=== PATIENT | female | born 1965 | race Caucasian/White ===

== ENCOUNTER → 2021-03-24 17:20 | Outpatient (CLI) | payer BC, SELFPAY ==
--- NOTE | ~2021-03-24 | XR_ITS ---
EXAMINATION: XR chest 2V 03/24/2021 18:02 INDICATION: Chronic cough PROCEDURE: 2 view chest COMPARISON: 06/01/2008 FINDINGS: There are small nodular densities in the left lower lung zone and right suprahilar region. No focal pneumonia, edema or pneumothorax. The cardiomediastinal silhouette is within normal limits. There are no pleural effusions. There is no pneumothorax suspected. IMPRESSION: 1: Small subcentimeter nodular densities both lungs. Follow-up CT chest with contrast recommended. Reviewed, dictated and finalized at location A. IMPRESSION: 1: Small subcentimeter nodular densities both lungs. Follow-up CT chest with c ontrast recommended.
--- NOTE | ~2021-03-24 | XR_ITS ---
XR knee LT min 4V 03/24/2021 18:03 INDICATION: Left knee pain PROCEDURE: 4 views left knee COMPARISON: No prior studies for comparison. FINDINGS: Fracture, dislocation or subluxation is not identified. The soft tissues appear within norm al limits. No foreign bodies are identified. IMPRESSION: 1: NO ACUTE BONE OR JOINT ABNORMALITY IDENTIFIED. Reviewed, dictated and finalized at location A.
== END ==
PROVIDERS: PCP Internal Medicine; Visit Provider Internal Medicine
DX: R05 Cough (principal); M25.562 Pain in left knee; R91.8 Other nonspecific abnormal finding of lung field
CPT/HCPCS: 71046; 73564

== ENCOUNTER 2021-03-30 08:03 | Outpatient (CLI) | payer BC, SELFPAY ==
--- NOTE | ~2021-03-30 | CT_ITS ---
EXAMINATION:CT diagnostic chest w con DATE: 03/30/2021 08:34 INDICATION: Chronic cough. Abnormal chest radiograph. TECHNIQUE: Computed tomography (CT) of the chest was performed with 75 mL Omnipaque 350 intravenous c ontrast. Automated exposure control and iterative reconstruction technique were employed. The dose-le ngth product (DLP) was 203.63 mGy-cm. COMPARISON: Chest 2 views 03/24/2021 FINDINGS: There is mild scarring at the lung apices. Calcified right lung nodules consistent with old granulomatous disease correlate with the chest radiograph abnormality. There is mild atelectasis in lingula. No pleural effusion. Calcified right hilar and mediastinal lymph nodes are consistent with o ld granulomatous disease. The heart size is normal. No pericardial effusion. There is mild thoracic s pondylosis. IMPRESSION: 1. Mild scarring at the lung apices. Reviewed, dictated and finalized at location A.
== END 2021-03-30 08:04 | disposition home or self-care (01) ==
LOC: CHSIMG 08:04
PROVIDERS: PCP Internal Medicine; Visit Provider Internal Medicine
DX: J98.4 Other disorders of lung (principal)
CPT/HCPCS: 71260; Q9967

== ENCOUNTER 2023-03-05 19:15 | Emergency (ER) | payer BC, SELFPAY ==
--- NOTE | ~2023-03-05 | CT_ITS ---
EXAMINATION: CT abdomen pelvis w con DATE: 03/05/2023 20:12 INDICATION: LLQ PAIN TECHNIQUE: Computed tomography (CT) of the abdomen and pelvis was performed with 100 mL Omnipaque-350 intravenous contrast. Automated exposure control and iterative reconstruction technique were employe d. The dose-length product was 638.77 mGy-cm. COMPARISON: None. FINDINGS: Lower thorax: Unremarkable Liver: Normal. Biliary/Gallbladder: Gallbladder is normal. No bile duct dilation. Pancreas: No mass or duct dilation. Spleen: Granulomas calcifications. Adrenals:No mass. Kidneys: Mild left pelviectasis and ureterectasis with inflammatory stranding. No suspicious mass or obstructing stone. GI tract: No small or large bowel dilation. Mild appendix dilation, without inflammatory change, like ly a chronic finding in the absence of right lower quadrant pain. Mesentery/Peritoneum: No ascites, mass, or free air. Central mesenteric edema with enlarged mesenteri c lymph nodes with fat halos. Retroperitoneum: No mass. Prominent periaortic lymph nodes. Pelvis: Mild bladder wall thickening in a partially distended urinary bladder, the remaining pelvic o rgans are within normal limits. Soft Tissues: Soft tissues and body wall unremarkable. Bones: No acute osseous finding. IMPRESSION: Sclerosing mesenteritis. Minimal hydronephrosis and mild inflammatory change involving the left colle cting system, without obstructing stone, may represent ascending infection in the appropriate clinica l context. Mild bladder wall thickening may be secondary to inadequate distention or cystitis. Reviewed, dictated and finalized at location K. IMPRESSION: Sclerosing mesenteritis. Minimal hydronephrosis and mild inflammatory change in volving the left collecting system, without obstructing stone, may represent as cending infection in the appropriate clinical context. Mild bladder wall thicke mike may be secondary to inadequate distention or cystitis.
--- NOTE | 2023-03-05 19:16 | ED.GENADULT ---
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 ASSOCIATED WITH URINARY FREQUENCY AND DYSURIA AT THE END OF VOIDING. NO HEMATURIA NO CHANGE IN HER BOWEL HABITS DENIES ANY DIARRHEA OR CONSTIPATION OR BLOOD IN HER STOOL OR FEVER HISTORY OF DIVERTICULOSIS KIDNEY STONES. SHE THINKS IT FEELS LIKE URINARY TRACT INFECTION SHE HAD IN THE PAST BUT THIS TIME SHE HAS LEFT LOWER QUADRANT PAIN WELL. DENIES ANY COUGH SORE THROAT RUNNY NOSE FEVER PAIN ELSEWHERE PROBLEMS WALKING TALKING SEEING OR HEARING RASH OR ITCHING LUMPS OR BUMPS BLEEDING OR BRUISING. HER LAST PERIOD WAS WHEN SHE WAS 42 SHE HAS TAKEN SOME TYLENOL WHICH SEEMS TO HELP HAD BENADRYL IN IT SO SHE HAS BEEN SLEEPING OKAY. PAST MEDICAL HISTORY: NO HISTORY OF DIABETES HYPERTENSION HEART DISEASE LUNG DISEASE KIDNEY STONES DIVERTICULOSIS DIVERTICULITIS THYROID DISEASE ALLERGIES NO KNOWN DRUG ALLERGIES Related Data Allergies Allergy/AdvReac Type Severity Reaction Status Date / Time No Known Allergies Allergy Verified 03/05/23 19:23 Exam Narrative: White female no apparent distress. ?Head:? Normocephalic atraumatic.? Eyes conjunctiva pink sclera nonicteric.? Ears normal.? Oropharynx is clear with moist mucous membranes no exudates.? Neck is supple no lymphadenopathy nontender full range of motion.? Back is nontender. Chest nontender.? Lungs are clear without wheezes rales or rhonchi.? Heart is regular rate rhythm without murmurs gallops or rubs.? Abdomen soft and with left lower quadrant tenderness and rebound in this location. No hepatosplenomegaly or masses, no CVA tenderness, no abdominal bruits. No guarding.? Extremities no cyanosis clubbing or edema.? Neurological she is alert and oriented x4 motor and sensory grossly intact.? Skin is warm and dry without lesions. Course Vital Signs Vital signs: Vital Signs Temperature 36.6 C 03/05/23 19:17 Pulse Rate 100 03/05/23 19:17 Respiratory Rate 20 03/05/23 19:17 Blood Pressure 190/108 H 03/05/23 19:17 Pulse Oximetry 98 03/05/23 19:17 Oxygen Delivery Room Air 03/05/23 19:17 Temperature 36.6 C 03/05/23 19:17 Pulse Rate 92 03/05/23 20:29 Respiratory Rate 18 03/05/23 20:29 Blood Pressure 142/90 H 03/05/23 20:29 Pulse Oximetry 99 03/05/23 20:29 Oxygen Delivery Room Air 03/05/23 20:29 Medical Decision Making MDM Narrative Medical decision making narrative: patient was placed in room 4 And a history and physical were performed. IV was started she is given a L of normal saline CT with IV contrast was done after labs are back which included CBC CMP lipase. Is given Toradol 30 mg IV and Zofran 4 mg IV. CBC CMP and lipase were normal urinalysis showed rbc's 11-200 with 16-20 wbc's +3 blood +1 bacteria +[address] with IV contrast showed sclerosing mesenteritis. Full hydronephrosis and mild inflammatory change involving the left collecting system without obstructing stone, may represent ascending infection the appropriate clinical context. Mild bladder wall thickening may be secondary to inadequate distention or cystitis. Patient given Cipro 250 mg for possible cystitis and prednisone 40 mg p.o. Patient states he feels better sharp pains down to 2. 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 Radiologist report was removed reviewed as above. External Source Review: Shared decision Making: evaluation discussed with patient and her son. All questions were asked
[2023-03-05 19:17] VITALS: BP 190/108; PULSE 100; RESP 20; TEMP 36.6; O2SAT 98
[2023-03-05 19:42] LABS: Hematocrit 40.9 % (35.0-49.0); Hemoglobin 13.6 g/dL (12.0-15.0); Mean Corpuscular HGB Conc 33.3 g/dL (32.0-36.0); Mean Corpuscular Hemoglobin 31.3 pg (27.0-31.0); Mean Platelet Volume 10.1 fl (9.2-11.8); Platelet Count Result 196 K/mm3 (150-420); Red Blood Count 4.35 M/mm3 (4.20-5.40); Red Cell Distribution Width 12.1 % (11.6-14.4); White Blood Count 8.4 K/mm3 (4.8-10.8)
[2023-03-05 19:43] LABS: Appearance Urine Clear (Clear); Bilirubin Urine Negative (Negative); Blood Urine 3+ (Negative); Color Urine Light Yellow (Yellow); Glucose Urine UA Negative (Negative); Ketones Urine Negative (Negative); Leukocyte Esterase Ur 1+ LEU/UL (Negative); Nitrate Urine Negative (Negative); Protein Urine 1+ (Negative); Specific Grav Ur 1.015 (1.010-1.020)
[2023-03-05] MEDS: KETOROLAC 30 MG/ML VIAL (*BKC) IV PUSH (19:44)
[2023-03-05 19:45] LABS: Add Urine Microscopic? YES; Bacteria Urine 1+ /hpf; Squamous Epithelial Cell Urine Rare /hpf (Few); WBC Urine 16-20 /hpf (0-3)
[2023-03-05] MEDS: SODIUM CHLORIDE 0.9% IV 1,000 ML 999 ML IV CONT (19:45)
[2023-03-05] MEDS: ONDANSETRON INJ 4 MG/2 ML VIAL IV PUSH (19:45)
[2023-03-05 19:57] LABS: Alanine Aminotransferase 30 U/L (14-59); Albumin Level 3.7 g/dL (3.4-5.0); Alkaline Phosphatase 69 U/L (46-116); Anion Gap 10 mmol/L (8-16); Aspartate Amino Transferase 16 U/L (15-37); Bilirubin,Total 0.3 mg/dL (0.00-1.00); Blood Urea Nitrogen 15 mg/dL (7-18); Calcium 8.9 mg/dL (8.5-10.1); Carbon Dioxide 29 mmol/L (21-32); Chloride 104 mmol/L (98-108); Estimated CRCL calculation 61 ml/min; Estimated Glomerular Filt Rate > 60; Glucose 136 mg/dL (70-99); Lipase 21 U/L (16-77); Osmolality Calculated 298 mOsm/kg (285-295); Potassium 4.1 mmol/L (3.5-5.1); Sodium 143 mmol/L (136-145); Total Protein 7.6 g/dL (6.4-8.2)
[2023-03-05 20:29] VITALS: BP 142/90; PULSE 92; RESP 18; O2SAT 99
[2023-03-05] MEDS: predniSONE 20 MG TABLET 40 MG PO (20:48)
[2023-03-05] MEDS: CIPROFLOXACIN 250 MG TABLET PO (20:48)
[2023-03-05 21:09] VITALS: BP 140/88; PULSE 90; RESP 20; TEMP 37.2; O2SAT 100
--- NOTE | 2023-04-11 11:37 | PC.NURSE ---
FINAL URINE CULTURE RESULT: 10,000-49,000 CFU/ML OF E COLI. PER DR SANTANA, NO CHANGE IN TX NEEDED.
== END 2023-03-05 21:17 | disposition home or self-care (01) ==
PROVIDERS: Emergency Provider Emergency Medicine; PCP Internal Medicine
DX: K65.4 Sclerosing mesenteritis (principal); N30.01 Acute cystitis with hematuria
CPT/HCPCS: 36415; 74177; 80053; 81001; 83690; 85027; 87077; 87086; 87088; 87186; 96361; 96374; 96375; 99284; A9270; J1885; J2405; J7030; J7512; Q9967

== ENCOUNTER 2023-10-08 11:29 | Outpatient (CLI) | payer BC, SELFPAY ==
--- NOTE | 2023-10-08 11:36 | ECG_ITS ---
Measurements Intervals [place] Rate: 66 P: 85 OR: 151 QRS: -17 QRSD: 88 T: -6 QT: 396 QTc: 415 Interpretive Statements SINUS RHYTHM NONSPECIFIC T-WAVE ABNORMALITY ABNORMAL ECG NO PREVIOUS ECG AVAILABLE FOR COMPARISON Electronically Signed On 10-09-2023 10:44:29 AGRICULTURAL EXTENSION OFFICER by Alok Yi M.D.
== END 2023-10-08 11:30 | disposition home or self-care (01) ==
LOC: CHSCARD 11:31
PROVIDERS: PCP Internal Medicine; Visit Provider Internal Medicine
DX: I10 Essential (primary) hypertension (principal); R94.31 Abnormal electrocardiogram [ECG] [EKG]
CPT/HCPCS: 93005

== ENCOUNTER → 2023-10-22 10:45 | Outpatient (CLI) | payer BC, SELFPAY ==
--- NOTE | ~2023-10-22 | US_ITS ---
EXAMINATION: US soft tissue UE LT DATE: 10/22/2023 11:04 INDICATION: Localized swelling, mass and lump, left upper extremity. TECHNIQUE: Multiple grayscale and Doppler ultrasound images of the left upper limb were obtained. COMPARISON: None FINDINGS: There is no abnormal mass in the patient's area of concern in left upper arm. IMPRESSION: 1. No abnormal mass in the patient's area of concern in left upper arm. Reviewed, dictated and finalized at location E. L FLOOR PAN PLACING SUPERVISOR
== END ==
PROVIDERS: PCP Surgery; Visit Provider Surgery
DX: R22.32 Localized swelling, mass and lump, left upper limb (principal)
CPT/HCPCS: 76882

== ENCOUNTER 2023-11-12 07:50 | Outpatient (CLI) | payer BC, SELFPAY ==
--- NOTE | ~2023-11-12 | MM_ITS ---
EXAMINATION: MM screening hernan BI w vonda HISTORY: Screening TECHNIQUE: Craniocaudal and mediolateral oblique 3-D tomosynthesis images were obtained and synthetic 2-D images were generated. CAD analysis was submitted and interpreted. COMPARISON: No prior mammogram is available for comparison at this institution. BREAST PARENCHYMAL COMPOSITION: The breasts are heterogeneously dense, which may obscure small masses FINDINGS: There are multiple nodular asymmetries in both breasts. There is a cluster of calcification s in the upper outer quadrant of the left breast posteriorly. IMPRESSION: 1. Bilateral nodular asymmetries and clustered left breast calcifications. 2. Additional spot compression and mediolateral views with possible follow-up breast ultrasound recom mended. BI-RADS Category 0: Incomplete: Needs additional imaging evaluation. Reviewed, dictated and finalized at location A. MIXING OPERATOR IMPRESSION: 1. Bilateral nodular asymmetries and clustered left breast calcifications. 2. Additional spot compression and mediolateral views with possible follow-up b reast ultrasound recommended. BI-RADS Category 0: Incomplete: Needs additional imaging evaluation.
== END 2023-11-12 07:51 | disposition home or self-care (01) ==
LOC: CHSIMG 07:52
PROVIDERS: PCP Internal Medicine; Visit Provider Internal Medicine
DX: Z12.31 Encounter for screening mammogram for malignant neoplasm of breast (principal); R92.8 Other abnormal and inconclusive findings on diagnostic imaging of breast
CPT/HCPCS: 77063; 77067

== ENCOUNTER 2023-11-19 09:19 | Outpatient (CLI) | payer BC, SELFPAY ==
--- NOTE | ~2023-11-19 | MMUS_ITS ---
EXAMINATION: MM diagnostic hernan BI w vonda, US breast BI limited HISTORY: Right breast mass and left breast calcifications on screening mammogram TECHNIQUE: Additional 3-D tomosynthesis images of the breasts were performed and synthetic 2-D images were generated. CAD analysis was submitted and interpreted. High resolution limited bilateral breast ultrasound was performed. COMPARISON: 11/12/2023, 01/30/2021, 04/06/2019 FINDINGS: MAMMOGRAPHIC FINDINGS: Left breast: There are grouped coarse heterogeneous calcifications in the posterior third of the uppe r outer quadrant of the breast at the 1:00 location, 7 cm from the nipple. No definite associated mas s or architectural distortion are identified. Right breast: There is a 1.8 x 1.0 cm oval, obscured, equal density mass in the middle/posterior thir d of the breast at the 12:00 location, 5 cm from the nipple. ULTRASOUND: Left breast: No cystic or solid mass is identified in the area of the calcifications identified on th e mammogram. Right breast: There are adjacent cysts measuring 7 mm and 12 mm at the 11:00 location, 5 cm from the nipple in the right breast corresponding to the mammographic finding in question. IMPRESSION: 1. Indeterminate left breast calcifications. Stereotactic left breast biopsy is recommended. 2. Simple cysts of the right breast corresponding to the mammographic finding. BI-RADS category 4, suspicious findings. Reviewed, dictated and finalized at location A. AIR DIRECTOR IMPRESSION: 1. Indeterminate left breast calcifications. Stereotactic left breast biopsy is recommended. 2. Simple cysts of the right breast corresponding to the mammographic finding. BI-RADS category 4, suspicious findings.
== END 2023-11-19 09:20 | disposition home or self-care (01) ==
LOC: CHSIMG 09:20
PROVIDERS: PCP Internal Medicine; Visit Provider Internal Medicine
DX: R92.8 Other abnormal and inconclusive findings on diagnostic imaging of breast (principal)
CPT/HCPCS: 76642; 77062; 77066; G0279

== ENCOUNTER 2023-11-25 09:17 | Outpatient (CLI) | payer BC, SELFPAY ==
--- NOTE | 2023-11-25 09:26 | ECHO_ITS ---
Patient Info Name: Lu Wilson Age: 58 years : 1965 Gender: Female Ht: 65 in Wt: 189 lbs BSA: 2.01 m2 HR: 65 bpm BP: 136 / 87 mmHg Heart Rhythm: Sinus Rhythm Technical Quality: Good Exam Date: 11/25/2023 10:22 AM Exam Location: Echo Lab Patient Status: Outpatient Admit Date: 11/25/2023 Staff Ordering Physician: Nahun Copeland MD Informatics Analyst: Humza Arias RDCS Attending Provider: Nahun Copeland MD Exam Type: CA echo doppler color flow Study Info Indications - ABN EKG Complete two-dimensional, color flow and Doppler transthoracic echocardiogram is performed. Summary 1. Complete two-dimensional, color flow and Doppler transthoracic echocardiogram is performed. 2. Left ventricular chamber dimension is mildly enlarged. 3. Left ventricular systolic function is normal, estimated at 55-60%. 4. The left ventricular diastolic function is normal. 5. There is trace mitral valve regurgitation. 6. There is mild tricuspid valve regurgitation. 7. No pulmonary hypertension, estimated pulmonary arterial systolic pressure is 32 mmHg. Left Ventricle Tissue doppler E/e' is not performed. Left ventricular chamber dimension is mildly enlarged. Left ventricular systolic function is normal, estimated at 55-60%. The left ventricular diastolic function is normal. Right Ventricle Right ventricular systolic function is normal and with normal TAPSE 2.2 cm. Right ventricular chamber dimension is normal. Left Atria Left atrial chamber dimension is normal. Right Atria Right atrial chamber dimension is normal. Aortic Valve The aortic valve is trileaflet. There is no aortic valve stenosis. There is no aortic valve regurgitation. Pulmonic Valve There is no pulmonic regurgitation. Mitral Valve There is no mitral valve stenosis. There is trace mitral valve regurgitation. Tricuspid Valve There is mild tricuspid valve regurgitation. No pulmonary hypertension, estimated pulmonary arterial systolic pressure is 32 mmHg. Pericardium/Pleural There is no pericardial effusion. Inferior Vena Cava Normal inferior vena cava with >50% collapse upon inspiration consistent with normal right atrial pressure, 5 mmHg. Aorta The aortic root size at the sinus of Valsalva is normal. Left Ventricular Outflow Tract Name Value Normal LVOT 2D LVOT Diameter 1.8 cm LVOT Doppler LVOT Peak Velocity 100 cm/s LVOT Peak Gradient 3 mmHg LVOT Mean Gradient 2 mmHg LVOT VTI 27 cm LVOT VTI/AV VTI Ratio 0.9 LVOT Stroke Volume 68 ml Pulmonic Valve Name Value Normal RVOT Doppler RVOT Peak Gradient 1 mmHg PV Doppler PV Peak Velocity 89 cm/s PV Peak Gradient 3 mmHg
== END 2023-11-25 09:18 | disposition home or self-care (01) ==
LOC: CHSIMG 09:19
PROVIDERS: PCP Internal Medicine; Visit Provider Internal Medicine
DX: R94.31 Abnormal electrocardiogram [ECG] [EKG] (principal); I07.1 Rheumatic tricuspid insufficiency
CPT/HCPCS: 93306

== ENCOUNTER 2024-09-05 10:54 | Emergency (ER) | payer BC, SELFPAY ==
[2024-09-05 11:00] VITALS: BP 178/95; PULSE 78; RESP 18; TEMP 36.8; O2SAT 99
--- NOTE | 2024-09-05 11:12 | ED_ITS ---
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 No fever chills no chest pain or shortness of breath. There is no dysuria. MD Complaint: extremity pain Onset (ago): day(s) Pain Consistency: constant Location: right Severity scale (1-10): 6 Related Data Home Medications Medication Instructions Recorded Confirmed loratadine 10 mg tablet (Allergy 10 mg PO DAILY 10/08/23 09/05/24 Relief (loratadine)) spironolactone 25 mg tablet 25 mg PO QAM 10/08/23 09/05/24 bupropion HCl 150 mg 24 hr tablet, 150 mg PO DAILY 09/05/24 09/05/24 extended release gabapentin 300 mg capsule 300 mg PO DAILY 09/05/24 09/05/24 phentermine 15 mg capsule 15 mg PO DAILY 09/05/24 09/05/24 Allergies Allergy/AdvReac Type Severity Reaction Status Date / Time erythromycin base Allergy Unknown Unknown Verified 09/05/24 11:03 Review of Systems Review of Systems: All systems reviewed & are unremarkable except as noted in HPI and below PMFSH Past Medical History Medical History Anxiety Asthma 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 spouse Hypertension, well controlled Surgical History Surgical History delivery delivered x2 Family History Family History Father Diabetes mellitus Hypertension Cerebrovascular accident Skin cancer Mother Hypertension Glaucoma Dementia Sibling Diabetes mellitus Social History Social History Social History: Smoking status: Former smoker Tobacco type: cigarettes Smoking end date: 10/28/99 Alcohol intake: never Occupation/Education: occupation 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 Exam Const: General: healthy appearing and no acute distress Nutritional Appearance: well nourished Orientation/consciousness: patient oriented x3 Limitations: no limitations Resp: Effort & Inspection: normal respiratory effort Auscultation: clear to auscultation bilaterally Cardio: Rate: regular rate Rhythm: regular rhythm Skin: General skin exam: normal color Rashes: no rashes Neuro: General: patient oriented x3, moves all extremities and no meningeal signs Extrem: General: normal to inspection Other: positive straight leg raising test on the right Course Course Emergency Course: patient already took NSAIDs and will administer a dose muscle relaxer and advised patient to follow-up with her primary. Vital Signs Vital signs: Vital Signs Temperature 36.8 C 09/05/24 11:00 Pulse Rate 78 09/05/24 11:00 Respiratory Rate 18 09/05/24 11:00 Blood Pressure 178/95 H 09/05/24 11:00 Pulse Oximetry 99 09/05/24 11:00 Oxygen Delivery Room Air 09/05/24 11:00 Temperature 36.8 C 09/05/24 11:00 Pulse Rate 78 09/05/24 11:00 Respiratory Rate 18 09/05/24 11:00 Blood Pressure 178/95 H 09/05/24 11:00 Pulse Oximetry 99 09/05/24 11:00 Oxygen Delivery Room Air 09/05/24 11:00 Critical Care Time Critical Care Time Critical Care Time: No Discharge Plan Discharge Clinical Impression: Sciatica of right side Patient Disposition: Home, Self-Care Condition: Stable Instructions: Antibiotic Form, Sciatica (ED) Additional Instructions: advised patient to take medication as prescribed follow with primary within a week if symptoms persist or worsen. Prescriptions: New tramadol 50 mg tablet 50 mg PO Q6H PRN (Reason: pain) Qty: 14 0RF cyclobenzaprine 5 mg tablet 5 mg PO TID Qty: 20 0RF No Action phentermine 15 mg capsule 15 mg PO DAILY gabapentin 300 mg capsule 300 mg PO DAILY bupropion HCl 150 mg tablet extended release 24 hr 150 mg PO DAILY loratadine [Allergy Relief (loratadine)] 10 mg tablet 10 mg PO DAILY spironolactone 25 mg tablet 25 mg PO QAM Follow-up/Referrals: Nahun Copeland MD [Primary Care Provider] - Time of Disposition: 11:17
--- NOTE | 2024-09-05 11:17 | PC.NURSE ---
ERP made aware patient is driving, Dr. Crawley states he is still okay with patient receiving orphenadrine IM.
[2024-09-05] MEDS: ORPHENADRINE CITRATE 30 MG/ML 2 ML VIAL 60 MG IM (11:18)
--- NOTE | 2024-09-05 11:32 | PC.NURSE ---
Patients son has come to take her home.
[2024-09-05 11:33] VITALS: BP 169/92; PULSE 75; RESP 16; TEMP 36.8; O2SAT 100
== END 2024-09-05 11:33 | disposition home or self-care (01) ==
LOC: CHSED 11:17
PROVIDERS: Emergency Provider Emergency Medicine; PCP Internal Medicine
DX: M54.31 Sciatica, right side (principal); I10 Essential (primary) hypertension; Z79.899 Other long term (current) drug therapy; Z87.891 Personal history of nicotine dependence
CPT/HCPCS: 96372; 99283; J2360

== ENCOUNTER 2024-09-14 10:00 | Outpatient (CLI) | payer BC, SELFPAY ==
--- NOTE | ~2024-09-14 | XR_ITS ---
3 VIEWS LUMBAR SPINE Ordering provider: Nahun Copeland MD History: . Back Pain with R L3 Radiculopathy,WORSENIGN . Comparison: None. FINDINGS: VERTEBRAL BODIES: No visible fracture or subluxation. DISK SPACES: Normal. Osteoarthritic changes of the level of L4-L5 and L5-S1. SOFT TISSUES: Normal. IMPRESSION: No acute osseous abnormality lumbar spine. Reviewed, dictated and finalized at location A. NG BIN OPERATOR
== END 2024-09-14 10:01 | disposition home or self-care (01) ==
PROVIDERS: PCP Internal Medicine; Visit Provider Internal Medicine
DX: M54.50 Low back pain, unspecified (principal)
CPT/HCPCS: 72100

== ENCOUNTER 2025-09-27 13:19 | Outpatient (CLI) | payer OTHER, SELFPAY ==
--- OUTSIDE RECORDS SUMMARY | 2011-07-16 23:00 | XMS_ITS | Encounter Summary ---
Author Organization [facility] Healthcare Address [address] [place] [address] Care Team Providers Care Lithographic Platemaker Name Role Phone Unavailable Primary Care Provider Unavailabl e Reason for Visit * Diagnostic Imaging (Routine) - Closed Specialty Diagnoses / Procedures Referred By Fina cantu Referred To Contact Procedures Breast Imaging Procedure Outside Reference [place] Rowe NP Phone: tel: fax: Referral ID Status Reason Start Date Expiration Date Visits Re quested Visits Authorized [id number] Closed 12/20/2023 01/18/2025 1 1 Encounter Details Date Type Department Care Team (Late st Contact Info) Description 07/17/2011 Hospital Encounter [facility] [address] [place] [address] [phone] Social History Tobacco Use Types Packs/Day Years Used Date Smoking Tobacco: Former Cigarettes Comments Unknown Sex and Gender Information Value Date Recorded Sex Assigned at Not on file Legal Sex Female 12:52 PM CDT Gender Identity Female 12/19/2023 11:24 PM [employer]ARMWORK[employer] Sexual Orientation Straight 01/06/2024 1: 30 PM CDT documented as of this encounter Functional Status * BP Location Answer Date of Assessment Author Right arm 03/29/2025 10:53 AM CDT [address], CMA * BP Location Answer Date of Assessment Author Right arm 03/29/2025 10:53 AM CDT Gerson thomason, YAZAN Campoverde documented as of this encounter Plan of Treatment Not on file documented as of this encounter Procedures Procedure Name Priority Date/Time Associated Diagnosis Comments BREAST IMAGING MG PROCEDURE OUTSIDE REFERENCE Routine 07/17/2011 12:00 AM CDT documented in this encounter Results * Breast Imaging Procedure Outside Reference (07/17/2011 12:00 AM CDT) Impressions [facility] - 12/20/2023 3:01 PM [employer] These images are for Reference purposes only and have not been reviewed by [facility] Radiology. There will be no report generated by a [facility] Radiologist. Narrative [facility] - 12/20/2023 3:01 PM [employer] EXAMINATION: Images For Reference Purposes Only us [place] Rowe MAINTAINER OPERATOR IMG MAMMO PROCEDURES Fin al Result [facility] documented in this encounter Visit Diagnoses Not on filedocumented in this encounter
--- OUTSIDE RECORDS SUMMARY | 2011-07-16 23:05 | XMS_ITS | Encounter Summary ---
Author Organization [facility] Healthcare Address [address] [place] [address] Care Team Providers Care Supervisor [employer] Production Name Role Phone Unavailable Primary Care Provider Unavailabl e Reason for Visit * Diagnostic Imaging (Routine) - Closed Specialty Diagnoses / Procedures Referred By Fina cantu Referred To Contact Procedures Breast Imaging Procedure Outside Reference [place] Rowe NP Phone: tel: fax: Referral ID Status Reason Start Date Expiration Date Visits Re quested Visits Authorized [id number] Closed 12/20/2023 01/18/2025 1 1 Encounter Details Date Type Department Care Team (Late st Contact Info) Description 07/17/2011 12:05 AM CDT Hospital Encounter [facility] Radiology [facility] [address] [place] [address] [phone] Social History Tobacco Use Types Packs/Day Years Used Date Smoking Tobacco: Former Cigarettes Comments Unknown Sex and Gender Information Value Date Recorded Sex Assigned at Not on file Legal Sex Female 12:52 PM CDT Gender Identity Female 12/19/2023 11:24 PM [employer]AP[employer] Sexual Orientation Straight 01/06/2024 1: 30 PM CDT documented as of this encounter Functional Status * BP Location Answer Date of Assessment Author Right arm 03/29/2025 10:53 AM CDT [address], CMA * BP Location Answer Date of Assessment Author Right arm 03/29/2025 10:53 AM CDT [address], CMA documented as of this encounter Plan of Treatment Not on file documented as of this encounter Procedures Procedure Name Priority Date/Time Associated Diagnosis Comments BREAST IMAGING MG PROCEDURE OUTSIDE REFERENCE Routine 07/17/2011 12:05 AM CDT documented in this encounter Results * Breast Imaging Procedure Outside Reference (07/17/2011 12:05 AM CDT) Impressions [facility] - 12/20/2023 3:02 PM [employer] These images are for Reference purposes only and have not been reviewed by [facility] Radiology. There will be no report generated by a [facility] Radiologist. Narrative [facility] - 12/20/2023 3:02 PM [employer] EXAMINATION: Images For Reference Purposes Only us [place] Rowe PUBLIC HEALTH REPRESENTATIVE IMG MAMMO PROCEDURES Fin al Result [facility] documented in this encounter Visit Diagnoses Not on filedocumented in this encounter
--- NOTE | ~2025-09-27 | DEXA_ITS ---
Bone Density Report Name: JANET ASHFORD Age: 60 Sex: Female Ethnicity: White Date of : 1965 Indication: postmenopausal; screening for osteoporosis; Referring Provider: Nahun Copeland Study: Bone densitometry was performed. Exam Date: September 27, 2025 Accession number: [id number] Bone Density: Region BMD T-score Z-score Classification AP Spine(L1-L4) 0.867 -1.6 -0.2 Osteopenia Femoral Neck (Left) 0.759 -0.8 0.5 Normal Total Hip (Left) 1.002 0.5 1.5 Normal Femoral Neck (Right) 0.747 -0.9 0.4 Normal Total Hip (Right) 0.981 0.3 1.3 Normal Femoral Neck Mean 0.753 -0.9 0.4 Normal Total Hip Mean 0.991 0.4 1.4 Normal World Health Organization criteria for BMD impression classify patients as: Normal (T-score at or above -1.0), Osteopenia (T-score between -1.0 and -2.5), or Osteoporosis (T-score at or below -2.5). 10-year Fracture Risk(1): Major Osteoporotic Fracture 6.6% Hip Fracture 0.4% Reported Risk Factors: [place] (), Neck BMD=0.747, BMI=22.0 (1) FRAX(R) Version 3.08. Fracture probability calculated for an untreated patient. Fracture probability may be lower if the patient has received treatment. Clinical Information Provided by Patient: Patient maximum height was 65 Menopause Age: 43 No regular weight bearing exercise Drinks caffeinated beverages Onset of menses at age 13 Number of children 2 Impression: The patient has low bone mass, based on the Total Spine T-score. Discussion: BONE DENSITY IS LOW AT ONE OR MORE SKELETAL SITES. This patient's lowest T-score is low at one or more skeletal sites. It meets the World Health Organization's (WHO) criteria for ?low bone mass? (T-score between -1.0 and -2.5). The patient's 10-year risk of fracture as calculated by FRAX is less than the threshold where pharmacological therapy is recommended by the National Osteoporosis Foundation (NOF). However, all treatment decisions require clinical judgment and consideration of individual patient factors, including patient preferences, comorbidities, previous drug use, risk factors not captured in the FRAX model (e.g., frailty, falls, vitamin D deficiency, increased bone turnover, interval significant decline in bone density) and possible under or overestimation of fracture risk by FRAX. The patient should follow a healthful lifestyle (good nutrition with adequate calcium and vitamin D, and appropriate weight-bearing exercise). Follow-Up: Consider repeating this study in 2 to 3 years to reassess this patient's status, or sooner if there is some new clinical indication. Reported by: GLADYS on 09/27/2025 1:39:00 PM. Reviewed, dictated and finalized at location A.
--- OUTSIDE RECORDS SUMMARY | 2025-09-27 14:30 | XMS_ITS | Data Portability ---
Author Organization [facility], [address] [facility] ([place]) Address [address] [place] [address] Care Team Providers Care Installation Drafter Name Role Phone MIKE DURHAM Primary Care Provider Assessment Encounter Date Assessment Date Assessment LastModified by Organization Details LastModified Time 03/02/2025 03/02/2025 IMPRESSION: 1. Normal annual gynecologic exam. 2. Mammogram done today down at [place]. 3. Excellent health habits. 4. Mild chronic hypertension. 5. Atrophic vaginitis. PLAN: I commended Lu for her superb health habits. She looks great and is taking wonderful care of herself. We will contact her as soon as we hear anything on her mammogram. Once she has appropriate followup completed there, she can just get them at her yearly visits here. I did talk to her about the fact that if she has significant discomfort with pelvic exam in spite using a small speculum. I explained if she would ever meet somebody and there would be thoughts of being sexually active again, I want her to let us know so we can get her started on vaginal estrogens well ahead of time and that was explained. Otherwise, we will see Lu back in a year and sooner should she have any other problems. claudia Not available 03/02/2025 12:28:21 Plan of Treatment Reminders Order Date Submit Date Provider Last Modified By Organization Details Last Modified Time Details Appointments Imaging 5.PRO 2025 09:45A M Radiology Not available Not available Not available Annual Well Woman Visit 10.EST 2025 10:10A M Dr. Wilfredo Chiu Not available Not available Not available Lab Pap test, slide(s) , cervical 2024 025 [facility] Only - [facility] Laboratory, [address] [place] [address], [id number], 03/16/2025 09:28:51 Referral None recorded . Procedures None recorded . Surgeries None recorded . Imaging None recorded . Medication Orders None recorded . Patient TargetsNo targets recorded. Patient InstructionsNo instructions recorded. Reason for Referral None Reported. 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 Perfo rmed at: [facility] Order ing Provi julio c: Riaz stalye, Florencio am Chirag nt Name: MAI CARMEN Accsanjana agata #: [id number] /A ge/Ge nder: 1964 (Age: 60) / F Proce dure Date: 025 SP ECIME N RECEI KELIN * SureP ath HPV DNA with Pap, Cervi jose roberto/E ndoce rvica l Speci men Adequ acy Satis facto ry for evalu ation Endoc ervic al cell/ trans forma tion zone compo nent prese nt Cytol ogic Diagn osis Negat florencio for intra epith elial lesio n or malig boni Squam ous epith elial atrop hy TOP TRIMMER EL ECTRO NICAL LY VERIF IED BY SAMUEL PEREZ E, CT( CP) * 2024 16:43 HPV Testi ng Date Order ed: 025 Date Repor graciela: 2024 09:42 Inter preta tion NEGAT FLORENCIO for high risk types of HPV Test Infor matio n Human Papil lomav irus (HPV) testi ng perfo rmed using the [facility] vadim 4800 HPV Test (Daryn sanchez Syste ms, [place] g[place] , [place] ). The vadim HPV Test is a polym erase chain react ion (PCR) -base d DNA ampli ficat ion test that simul taneo usly ident ifies a mitchell d resul t for 12 HR HPV types (HPV- 31, 33, 35, 39, 45, 51, 52, 56, 58, 59, 66 and 68) and indiv idual resul ts for HPV-1 6 and HPV-1 8. High Risk HPV types are assoc iated with cervi jose roberto carci noma and its predi sposi ng lesio ns: cervi jose roberto atypi a and high grade squam ous intra epith elial lesio n (mode rate and sever e dyspl phu, carci noma in situ/ NEREYDA 2 and NEREYDA 3). The U.S. Food and Drug Admin istra tion (FDA) has appro kelin this test for use with SureP ath speci mens. The perfo rmanc e macey cteri stics of this test were verif ied by the [facility] ([facility] [place] [facility]). [facility] is autho rized under Clini jose roberto Labor atory Impro vemen t Amend ments (CLIA ) to perfo rm high- compl exity testi ng. Recom menda tion The Ameri can Cance r Socie ty (ACS) , Ameri can Socie ty for Colpo scopy and Cervi jose roberto Patho logy (ASCC P), and Ameri can Socie ty for Clini jose roberto Patho logy (ASCP ) recom mends that women who recei ve negat florencio resul ts on both tests shoul d be rescr eened no more frequ ently than every five years . HPV DNA posit florencio, cytol ogy negat florencio women shoul d be follo wed conse rvati vely repea ting BOTH tests in 12 month s. HPV-n egati ve ASC-U S shoul d be rescr eened with co-te sting in 3 years . All other Pap test inter preta tions shoul d be follo wed accor ding to ASCCP Conse nsus Guide lines for that parti cular inter preta tion. HPV testi ng is order ed as part of refle x testi ng as indic ated by the requi sitio n order and/o r as a resul t of addit ional testi ng reque sts submi tted by the physi nicole. EL ECTRO NICAL LY VERIF IED BY STEPHEN ON T STEPHEN ON, SCT(A SCP)C M 2024 09:42 CL INICA L/MEN STRUA L HISTO RY Menst rual Hx: Postm enopa usal Other Clini jose roberto Condi tions : ICD-1 0 Code: z01.4 19 The Pap test is a scree mike test for uteri ne cervi jose roberto cance r with an inher ent, but low false negat florencio rate. A biops y is recom keagan d for any suspi cious or visib le lesio n. The patie nt shoul d be remin ded to consu lt a gynec ologi c care provi julio c if they exper ience any suspi cious signs or sympt oms regar dless of the Pap test resul t. END OF REPOR T Not Available Co Only - [facility] [address] [place] [address], [id number], 03/09/2025 17:44:22 Result Notes None recorded. Procedures Surgical History Date Name Laterality Status Provider Name and Address Organization Details Recorded Time 5 Date of Last Mammogram completed Jackie Vora, HEAD CASHIER [address] [place] [address], [phone], [facility] 03/02/2025 11:24:05 5 Date of Last Pap Smear completed Jackie Vora, HEAD CASHIER [address] [place] [address], [phone], [facility] 03/02/2025 11:26:10 delivery completed Not Available Health Note 02/23/2025 14:28:55 Imaging Results None recorded. Procedure Notes None recorded. Medical Equipment None Reported. Allergies Allergen ID Allergen Name Allergen Category Reaction Reaction Severity Criticality Documentation Date Start Date Code Code System Note Provider Name and Address Organization Details Recorded Time 101378 E-Mycin medicatio n Not available Not available Not available 11/25/2023200660 8 RxNorm Not Available [facility] 23:02:32 660239 Biaxin medicatio n Not available Not available Not available 11/25/2023200672 9 RxNorm Comme nt: Other Megan bassett ns: OLEG COLÓNIMM ETT, CLINI NFOTM P 2006 11:24 AM V-CIL MERY; ; Not Available [facility] 23:02:32 Medications Name Sig Start Date Stop Date Status Note LastModified by Organization Details LastModified Time phentermine 15 mg capsule TAKE 1 CAPSULE BY MOUTH ONCE DAILY BEFORE BREAKFAST active Not Available Not Available No t Available tramadol 50 mg tablet TAKE 1 TABLET BY MOUTH EVERY 6 HOURS NEEDED 03/02 completed Not Available Not Available Not Available gabapentin 300 mg capsule TAKE 1 CAPSULE BY MOUTH ONCE DAILY IN THE EVENING active Not Available Not Available No t Available methylpredn isolone 4 mg tablets in a dose pack TAKE DIRECTED 03/02 completed Not Available Not Available Not Available spironolact one 50 mg tablet TAKE 1 TABLET BY MOUTH ONCE DAILY active Not Available Not Available No t Available cyclobenzap rine 5 mg tablet TAKE 1 TABLET BY MOUTH THREE TIMES DAILY active Not Available Not Available No t Available bupropion HCl XL 150 mg 24 hr tablet, extended release TAKE 1 TABLET BY MOUTH ONCE DAILY active Not Available Not Available No t Available nitrofurant oin monohydrate /macrocryst als 100 mg capsule TAKE 1 CAPSULE BY MOUTH EVERY 12 HOURS WITH FOOD 03/02 completed Not Available Not Available Not Available Vitals Date Recorded Body height Body mass index (BMI) Body weight Systolic And Diastolic Provider Name and Address Organization Details Last Updated DateTime 03/02/2025 165.1 cm 24.6 kg/m2 97896.67 g 116/68 mm[Hg] Jackie Vora, HEAD CASHIER [address], [phone], [facility] 03/02/2025 11:23:31 Social History Question Answer Notes LastModified by Organizat ion Details LastModified Time Tobacco Smoking Status Former Smoker Not Available Health Note 02/23/2025 14:28:56 Do You Have An Advance Directive? Yes [email or web address] Information not available 02/23/2025 What Is Your Level Of Caffeine Consumption? Occasional [email or web address] Information not available 02/23/2025 What Is Your Code Status? Full Code [email or web address] Information not available 02/23/2025 How Many Times Per Week Do You Exercise? 1-2 Times Per Week [email or web address] Information not available 02/23/2025 When Did You Quit Smoking? 16+yearssincel astcigarette [email or web address] Information not available 02/23/2025 What Was The Date Of Your Most Recent Tobacco Screening? 03/02/2025 [email or web address] Information not available 02/23/2025 What Is Your Relationship Status? [email or web address] Information not available 02/23/2025 Sex: Unknown Functional Status Question Answer Note LastModified by Organizat ion Details LastModified Time Do you use any illicit or recreational drugs? No [email or web address] Information not available 02/23/2025 Do you or have you ever used any other forms of tobacco or nicotine? No [email or web address] Information not available 02/23/2025 What is your level of alcohol consumption? None [email or web address] Information not available 02/23/2025 Are you currently employed? 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 Moderate [email or web address] Information not available 02/23/2025 Mental Status None recorded. Family History Relationship Description Onset Age of this Age Resolved Age Notes LastModified by Organization Details LastModified Time Mother Alzheimer's disease [email or web address] Not available 2024 14:28:55 Mother Arthritis [email or web address] Not available 02/23/2025 14:28:55 Mother Asthma [email or web address] Not available 14:28:55 Mother Heart disease [email or web address] Not available 2024 14:28:55 Father Family history of malignant neoplasm [email or web address] Not available 2024 14:28:55 Father Diabetes mellitus [email or web address] Not available 2024 14:28:55 Father Heart disease [email or web address] Not available 2024 14:28:55 Father Hypertensive disorder [email or web address] Not available 2024 14:28:55 Father Hypercholest erolemia [email or web address] Not available 2024 14:28:55 Father Cerebrovascu lar accident [email or web address] Not available 14:28:55 Brother Diabetes mellitus [email or web address] Not available 2024 14:28:55 Brother Hypertensive disorder [email or web address] Not available 2024 14:28:55 Medical History Condition Response Attention-deficit Hyperactivity Disorder N High Blood Pressure Y Thyroid Problems N COPD N Depression N Anemia N Diabetes N Anxiety Disorder N Bleeding Disorder N Arthritis N Hyperlipidemia N Cancer N Stroke N Asthma N Seizures N Heart Disease N Fibromyalgia N Osteoporosis N Kidney Disease N Gynecological History Statement/Question Response Date of Last Pap Smear 03/02/2025 Current Control Method Menopause Date of Last Mammogram 03/29/2025 Obstetrics History GPAL:G 0 P 0 0 0 0 Past Encounters Encounter ID Performer Location Encounter Start Date Encounter Closed Date Diagnosis/Indication Diagnosis SNOMED-CT Code Diagnosis ICD10 Code Diagnosis IMO Codes Diagnosis Note [id number] Wilfredo Chiu MD [address] [facility] ([place]) [address] [place] [address] 03/02/2025 11:12:27 03/02/2025 11:51:15 Gynecologic examination 85453052 Z01.419 526301 Health Concerns Section Related Observation LastModified by Organization Detai ls LastModified Time None Recorded Concern Status LastModified by Organization Details LastModified Time None Recorded Advance Directives Directive Y: Payers Insurance Date Sequence Insurance Name Policy Number Policy Benavides Covered Member ID Benavides Member ID Guarantor Name 08/05/2025 1 [employer] (O) [id number] Lu Omar Lopezr [id number] Lu Omar Wilson Notes Date Note Type Note Provider Name and Address Organization Details Recorded Time 03/02/2025 text/html CHIEF COMPLAINT:Annual gynecologic exam. HISTORY OF PRESENT ILLNESS:Tamara is in today to reestablish care. She is a delightful 60-year-old female, 2, para 2 with her two kids delivered by section. Lu denies any gynecologic issues currently as far as pelvic pain, discomfort, unusual discharge or dyspareunia. She is not sexually active and has not been for some time as her several years ago from renal cell cancer. Lu has had no recent surgeries. She does not smoke, drink excessively, or use any recreational drugs. She exercises 30-60 minutes several days a week with walking, doing weights and some core exercises which is awesome. As mentioned, she is not sexually active. 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 Her two kids are, I believe, nearby. Her son, Donal, is 35, and then her daughter, Ayaan, is an RN over in [facility]. FAMILY HISTORY:Unchanged. Wilfredo Chiu MD [address] [facility], [place], [address], [facility] 03/04/2025 09:29:55 OBGyn Episode No OBEpisode recorded.
--- OUTSIDE RECORDS SUMMARY | 2025-09-27 14:30 | XMS_ITS | Clinical Summary ---
Author Organization [facility] Address [address] [place] [address] Care Team Providers Care Treasurer Name Role Phone Nahun Copeland MD Primary Care Provider Social History Tobacco Use Types Packs/Day Years Used Date Smoking Tobacco: Never Assessed Comments Unknown Sex and Gender Information Value Date Recorded Sex Assigned at Not on file Legal Sex Female 9:01 AM CDT Gender Identity Not on file Sexual Orientation Not on file Plan of Treatment Health Maintenance Due Date Last Done Comments Cervical Cancer Screening Pa p Smear (Age 30 to 64) Every 3 Years 1965 Colorectal Cancer Screening Colonoscopy (10 Years) 1965 Annual Physical 02/09/1968 Hepatitis C 1983 DTaP, Tdap and Td Vaccines ( 1 - Tdap) 02/09/1984 Cervical Cancer Screening Pa p with HPV Testing (Age 30 to 64) Every 5 Years 1995 Cervical Cancer Screening with HPV 1995 Mammogram Screening 2005 Pneumococcal Vaccine: 50+ Ye ars (1 of 1 - PCV) 2015 Zoster Vaccines (1 of 2) 2015 COVID-19 Vaccine ( - 2024-2 6 season) 2025 Influenza Adult (#1) 2025 RSV Immunization or 60+ Years (1 - 1-dose 75+ series) 02/09/2040 Hepatitis A Vaccines Aged Out No long er eligible based on patient's age to complete this topic Meningococcal B Vaccine Aged Out No l onger eligible based on patient's age to complete this topic Meningococcal Vaccine Aged Out No sumit michael eligible based on patient's age to complete this topic RSV Immunizations Under 20 Months Aged Out No longer eligible based on patient's age to complete this topic Insurance [facility] Care Teams Treasurer Relationship Specialty Start Date End Date Nahun Copeland MD [address] [place] [address] PCP - General INTERNAL MEDICINE 07/18/21
--- OUTSIDE RECORDS SUMMARY | 2025-09-27 14:30 | XMS_ITS | Clinical Summary ---
Author Organization [place] [id number] Address [address] [place] [address] Care Team Providers Care Eyeglass Maker Name Role Phone Nahun Copeland MD Primary Care Provider [phone] Allergies Active Allergy Reactions Criticality Noted Date Comments Erythromycin Other (See comments) Low 12/17/2023 Sore in mouth V-Cillin-K Other (See comments) Low 12/17/2023 Sore in mouth Medications gabapentin (NEURONTIN) 300 mg capsule TAKE 1 CAPSULE BY MOUTH ONCE DAILY IN THE EVENING 3 Active spironolactone (ALDACTONE) 50 mg tablet Take 1 tablet (50 mg total) by mouth daily 4 Active buPROPion XL (WELLBUTRIN XL) 150 mg 24 hr tablet Take 1 tablet (150 mg total) by mouth daily 4 Active phentermine 15 mg capsule Take 1 capsule (15 mg total) by mouth daily before breakfast 4 Active Active Problems Problem Noted Date Diagnosed Date Abnormal mammogram 01/21/2024 Primary hypertension 12/17/[address] scan, gastrointestinal tract 024 Colon cancer screening 12/17/2023 Immunizations Immunization Administration Dates Next Due Influenza, Quadrivalent, Spl it, Intramuscular 09/17/2017,11/27/2016,08/23/2014 Influenza, Quadrivalent, Spl it, Preservative Free, Intramuscular 08/09/2020,09/14/2019,09/16/2018 Influenza, Trivalent, IM (MDV) 08/25/2013,2011,08/06/2011 Tdap 08/23/2014 ZOSTER Recombinant 02/26/2022 Surgical History Surgery Date Site/Laterality Comments SECTION 1988, 1992 BREAST BIOPSY 02/11/2024 Left Medical History Medical History Date Comments Hypertension Depression Family History Medical History Relation Name Comments Cancer Father Diabetes Father Hypertension Father Leukemia Father Stroke Father Hypertension Mother Relation Name Status Comments Father Mother Social History Tobacco Use Types Packs/Day Years Used Date Smoking Tobacco: Former Cigarettes Tobacco Cessation:Counseling Given: Not Answered Comments Unknown Sex and Gender Information Value Date Recorded Sex Assigned at Not on file Legal Sex Female 12:52 PM CDT Gender Identity Female 12/19/2023 11:24 PM 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 Sexual Orientation Straight 01/06/2024 1: 30 PM CDT Obstetrics History Para Term AB IAB SAB Ectopic Multiple Livin g Live Births 2 2 2 Date Outcome GA Total Labor Labor/2nd/3rd Weight Sex Type Anes PTL Mary A1 A5 Name Clin Term Term Last Filed Vital Signs Vital Sign Reading Time Taken Comments Blood Pressure 178/92 03/29/2025 10:53 AM CDT Pulse 72 03/29/2025 10:53 AM CDT Temperature 36.6 C (97.8 F) 03/29/2025 10:53 AM CDT Respiratory Rate 22 03/29/2025 10:53 AM CDT Oxygen Saturation 99% 03/29/2025 10:53 AM CDT Inhaled Oxygen Concentration - - Weight 64.4 kg (142 lb) 03/29/2025 10:53 AM CDT Height 165 cm (5' 4.96) 03/29/2025 10:53 AM CDT Body Mass Index 23.66 03/29/2025 10:53 AM CDT Plan of Treatment Health Maintenance Due Date Last Done Comments Cervical Cancer Screening 1965 Colon Cancer Screening-Colonoscopy 1965 Depression Screening 1965 Hepatitis C Screening 1965 Hepatitis B Screening 1983 Regular Well Visit/Exam 18-64 1983 Zoster Vaccine (2 of 2) 04/23/2022 02/26/2022 DTaP/Tdap/Td Vaccine (2 - Td or Tdap) 08/23/2024 08/23/2014 Influenza Vaccine (#1) 2025 , 09/14/2019, 09/16/2018, Additional history exists Breast Cancer Screening-Mammogram 03/29/2026 03/29/2025 Pneumococcal vaccine <65 Aged Out No longer eligible based on patient's age to complete this topic Medical Devices Implanted Type Area Physician Device Identifier Shelf Expiration Date Model / Serial / Lot Nasseo [facility] Eviva 13cm Identifier Biopsy Site [id number] - [id number] Implanted:Qty: 1 on 02/11/2024 at [facility] Left: Breast Nasseo [facility] [id number] 10/16/2024 [facility]-LAUREEN VA-[id number] / / [id number] Procedures Procedure Name Priority Date/Time Associated Diagnosis Comments DIAGNOSTIC MAMMOGRAM BILATERAL W RAJNI Schedule Routine, Read Routine (OP Routine) 03/29/2025 1:27 PM CDT Abnormal mammogram from Last 3 Months or Most Recently Relevant to Health Maintenance Results * Diagnostic Mammogram Bilateral W Rajni (03/29/2025 1:27 PM CDT) Anatomical Region Laterality Modality Breast Bilateral Mammography 03/29/2025 4:05 PM CDT Impressions 03/29/2025 4:05 PM CDT Stable probably benign calcifications in the upper outer LEFT breast. OVERALL FINAL ASSESSMENT: BI-RADS Category 3: Probably Benign. RECOMMENDATION: Recommend follow-up diagnostic breast imaging in [address] Lin discussed the above findings and recommendations with the patient, who expressed her understanding of the management plan. Electronically signed by: Alex Lin MD Narrative 03/29/2025 4:05 PM CDT EXAMINATION: BILATERAL DIGITAL DIAGNOSTIC MAMMOGRAM INCLUDING CAD AND BILATERAL DIGITAL BREAST TOMOSYNTHESIS HISTORY: 60-year-old woman with history of LEFT breast calcifications status post stereotactic biopsy demonstrating fibroadenomatoid change and fibrocystic change. An additional group of calcifications was considered probably benign. COMPARISON: Multiple priors dating back to 2023, most recent diagnostic mammogram 08/25/2024 TECHNIQUE: Full field digital mammographic views of BOTH breasts were performed, including computer aided detection (CAD) and BILATERAL digital breast tomosynthesis (DBT). BREAST PARENCHYMAL COMPOSITION: The breasts are heterogeneously dense, which may obscure small masses. MAMMOGRAM FINDINGS: Stable appearance of calcifications within the LEFT breast compared to 02/11/2024. No new suspicious mass, distortion, or calcification within EITHER breast. Maria Elena Mathis NP IM MAMMO PROCEDURES Fi nal Result from Last 3 Months or Most Recently Relevant to Health Maintenance Insurance [facility] [address] [facility] Care Teams Eyeglass Maker Relationship Specialty Start Date End Date Nahun Copeland MD PCP - General Internal Medicine 03/19/23
--- OUTSIDE RECORDS SUMMARY | 2025-09-27 14:30 | XMS_ITS | Encounter Summary ---
Author Organization [facility] Address [address] [place] [address] Phone Care Team Providers Care Utility Aircrewman Name Role Phone Nahun Copeland MD Primary Care Provider Encounter Details Date Type Department Care Team (Late st Contact Info) Description 03/05/2023 Orders Only [facility] Scanning, Provider Social History Tobacco Use Types Packs/Day Years Used Date Smoking Tobacco: Never Assessed Comments Unknown Sex and Gender Information Value Date Recorded Sex Assigned at Not on file Legal Sex Female 12:52 PM CDT Gender Identity Female 12/19/2023 11:24 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 Sexual Orientation Straight 01/06/2024 1: 30 PM CDT documented as of this encounter Plan of Treatment Not on file documented as of this encounter Procedures Procedure Name Priority Date/Time Associated Diagnosis Comments SCAN - RADIOLOGY/IMAGING 03/05/2023 documented in this encounter Results * SCAN - RADIOLOGY/IMAGING (03/05/2023) Anatomical Region Laterality Modality Other us Provider Scanning Final Result documented in this encounter Visit Diagnoses Not on filedocumented in this encounter Care Teams Utility Aircrewman Relationship Specialty Start Date End Date Nahun Copeland MD PCP - General Internal Medicine 03/19/23 documented as of this encounter
== END 2025-09-27 13:20 | disposition home or self-care (01) ==
LOC: CHSIMG 13:23
PROVIDERS: PCP Internal Medicine; Visit Provider Internal Medicine
DX: M81.0 Age-related osteoporosis without current pathological fracture (principal); M85.88 Other specified disorders of bone density and structure, other site
CPT/HCPCS: 77080